=== PATIENT | female | born 1950 ===

== ENCOUNTER 2023-12-05 09:33 | Outpatient (RCR) | payer OTHER, SELFPAY | END 2023-12-05 23:59 | disposition home or self-care (01) | LOC: RST 09:33 | PROVIDERS: ATTENDING PHYSICIAN Physician Assistant Medical | DX: I69.328 Other speech and language deficits following cerebral infarction (principal) | CPT/HCPCS: 92507; 92523 ==

== ENCOUNTER 2023-12-26 10:24 | Outpatient (RCR) | payer OTHER, SELFPAY | END 2023-12-26 23:59 | disposition home or self-care (01) | LOC: RST 10:24 | PROVIDERS: ATTENDING PHYSICIAN Physician Assistant Medical | DX: I69.328 Other speech and language deficits following cerebral infarction (principal) | CPT/HCPCS: 92507 ==

== ENCOUNTER 2024-01-11 10:21 | Outpatient (RCR) | payer OTHER, SELFPAY | END 2024-01-11 23:59 | disposition home or self-care (01) | LOC: RST 10:21 | PROVIDERS: ATTENDING PHYSICIAN Physician Assistant Medical | DX: I69.328 Other speech and language deficits following cerebral infarction (principal); I69.320 Aphasia following cerebral infarction; I69.398 Other sequelae of cerebral infarction; I69.318 Other symptoms and signs involving cognitive functions following cerebral infarction; Z73.6 Limitation of activities due to disability | CPT/HCPCS: 92507 ==